=== PATIENT | male | born 1995 | race Caucasian/White ===

== ENCOUNTER 2016-10-29 10:39 | Emergency (ER) | payer MEDICAID, OTHER ==
[~2016-10-29] VITALS: Ht 170.2 cm; Wt 62.5 kg
[~2016-10-29 10:39] MED LIST: ADVIL PO; TYLENOL
[2016-10-29 10:40] VITALS: Ht 170.2 cm; Wt 62.5 kg
--- NOTE | 2016-10-29 10:51 | ERA ---
ER Documentation Chief Complaint Date/Time DATE: 10/29/16 TIME: 10:51 Chief Complaint pt bib self from street, needs eval for psych HPI 21y/o male with unspecified psychotic disorder presents to the ED requesting admission pending his meeting and needing medication. Denies hallucinations, suicidal or homicidal ideations. Poor historian. States his mother is coming and known what medication he needs. Denies headache, chest pain, palpitations, shortness of breath, abdominal pain, fevers or chills. History limited. ROS All systems reviewed and are negative except as per history of present illness. Medications Home Meds Reported Medications [Advil] No Conflict Check, PO Y 03/08/13 [Tylenol] No Conflict Check, Y 03/08/13 Allergies Allergies: Coded Allergies: No Known Allergy (Unverified , 03/08/13) PMhx/Soc Reviewed in chart. As per HPI. History of Surgery: Yes (APPY, hernia) Anesthesia Reaction: No Hx Neurological Disorder: No Hx Respiratory Disorders: Yes (ASTHMA - 1-1/2 YRS AGO) Hx Cardiac Disorders: No Hx Psychiatric Problems: Yes (Previous hospitalizations for unspecified psychiatric disorder) Hx Miscellaneous Medical Probl: No Hx Alcohol Use: No Hx Substance Use: No Hx Tobacco Use: No FmHx Unknown Physical Exam Vitals Vital Signs Date Time Temp Pulse Resp B/P Pulse Ox O2 Delivery O2 Flow Rate FiO2 10/29/16 10:40 99.6 115 18 137/81 99 Physical Exam Const: Anxious, restless Head: Atraumatic Eyes: Normal Conjunctiva ENT: Normal External Ears, Nose and Mouth. Neck: Full range of motion. Nontender Resp: Clear to auscultation bilaterally Cardio: Regular rate and rhythm, no murmurs Abd: Soft, non tender, non distended. Normal bowel sounds Skin: No petechiae or rashes Back: No midline or flank tenderness Ext: No cyanosis, or edema Neur: Awake and alert. Steady gait. No focal deficit observed. Psych: Anxious, restless. Denies hallucinations, SI/HI. Procedures/MDM DOCUMENTS REVIEWED: ED nurse, prior records: hernia repair 2013 [employer] DECISION MAKINy/o male with unspecified psychotic disorder presents to the ED requesting admission pending his meeting and needing medication. Patient presents with symptomatology consistent with decompensation of previously diagnosed psychiatric disease. Based on history, physical exam I appreciate no evidence of significant life threatening injury or illness that precludes psychiatric evaluation. Refused phlebotomy or to provide urine sample, hence toxic, infectious, metabolic, PIGMENT GRINDER or other unstable co-morbidities cannot be definitively ruled out. Substance abuse/intoxication is not ruled out. In regards to the psychiatric complaints, this patient is not suicidal/ homicidal or gravely disabled, hence does not meet criteria for involuntary hold. Refer to tele-psychiatry evaluation and recommendations. Refused medications. Eloped at 11:50. Departure Diagnosis: Primary Impression: Encounter for psychiatric assessment Additional Impression: Unspecified psychosis Condition: Fair (Eloped) MCKENZIE CAZARES MD Oct 29, 2016 10:51
--- NOTE | 2016-10-29 11:52 | PSY ---
Date/Time of Note Date/Time of Note DATE: 10/29/16 TIME: 11:45 Psychiatric Subjective Eval Consent Pt consented to telemedicine: Yes Subjective Evaluation Patient location: emergency Chief Complaint: pt bib self from street, needs eval for psych History of present illness 21 yo male self presenting to ED stating he is here to get some sleeping pills; pt initially stated he is here to get admitted to the hospital untill his meeting on Monday; to me he said he needs sleeping pills; he says his mother will come to ED and will bring sleeping pills; UDS pneding. Pt is restless, but he denies si or hi, tyson glover or vh, denies drug use, denies paranoia; he says he is unemployed. He says he has troubles sleeping. he is poor historian and keeps repeating: My mother will bring my pills, ask my mother. he says he wants to go home. Past psychiatric history prior inpt Hospitalization: yes Family History denies Medical history NAD Allergies: Coded Allergies: No Known Allergy (Unverified , 03/08/13) Substance Abuse Substance use: No known substance abuse Social History Marital status: single Level of education: 11th grade DPA/Conservatorship: No Occupation/Penitentiary: unemployed, lives with mother Psychiatric Objective Eval Mental Status Examination: Appearance: Groomed Eye Contact: Good Psychomotor Activity: Other Behavior: Bizarre Speech: Clear AFFECT: Anxious Mood: Anxious Though Process: Perseverative Thought Content: Normal Suicidal: No Homicidal: No On 72 hour hold: No Orientation: x4 Cognition: Alert Insight: Impared Judgement: Impared Assessment and Plan Assessment/Diagnosis [place] I: Anxiety disorder unspecified. Psychotic disorder unspecified [place] II: defered [place] III: NAD [place] IV: moderate [place] V: GAF 35 Recommendation/Plan Medication Management Please administer Zyprexa Zydis 5 mg and Ativan 1m g po x1 now due to anxiety; I would strongly recommend to reevaluate the patient 2-3 hours after he is medicated and then awake and alert. If pt refused meds and is able to state his address he can be released AMA because he is not holdable - no DTS, DTO, GD. Pt. Caregiver/Family Education please call pt's mother for collateral information [id number] Recommendation: CAITLIN MOORE MD Oct 29, 2016 11:52
== END 2016-10-29 13:49 | disposition left against medical advice (07) ==
LOC: E/R 10:39
DX: F29 Unspecified psychosis not due to a substance or known physiological condition (principal); J45.909 Unspecified asthma, uncomplicated; R40.2142 Coma scale, eyes open, spontaneous, at arrival to emergency department; R40.2252 Coma scale, best verbal response, oriented, at arrival to emergency department; R40.2362 Coma scale, best motor response, obeys commands, at arrival to emergency department; Z04.6 Encounter for general psychiatric examination, requested by authority
CPT/HCPCS: 99284